=== PATIENT | male | born 1935 | race Two or more races ===

== ENCOUNTER → 2016-09-15 | Outpatient (CLI) | payer OTHER ==
--- NOTE | 2016-09-15 12:40 | CARD ---
APPROVED REPORT EXAM: Two-dimensional and M-mode echocardiogram with Doppler and color Doppler. Other Information Quality : GoodHR: 62bpm Rhythm : NSR INDICATION Aortic stenosis 2D DIMENSIONS RVDd2.7 (2.9-3.5cm)Left Atrium(2D)4.6 (1.6-4.0cm) IVSd1.2 (0.7-1.1cm)Aortic Root(2D)3.7 (2.0-3.7cm) LVDd4.8 (3.9-5.9cm)LVOT Diameter2.3 (1.8-2.4cm) PWd1.2 (0.7-1.1cm)LVDs2.8 (2.5-4.0cm) FS (%) 40.3 %SV75.0 ml LVEF(%)70.9 (>50%) Aortic Valve AoV Peak Jose Alejandro.378.2cm/sAoV VTI74.9cm AO Peak GR.57.2mmHgLVOT Peak Jose Alejandro.115.5cm/s AO Mean GR.25mmHgAVA (VMAX)1.32cm2 Mitral Valve MV E Fbfvzrkl983.1cm/sMV E Peak Gr.7mmHg MV DECEL [id number] A Httytqsb863.3cm/s MV E Mean Gr.2mmHgE/A Ratio0.8 MV A [id number] Pulmonary Valve PV Peak Nqgklrpl774.2cm/s Pulmonary Vein S1 Zpagkytd96.3cm/sD2 Mhfhrkzd88.6cm/s PVa [id number] LEFT VENTRICLE The left ventricle is normal size. There is mild concentric left ventricular hypertrophy. The left ve ntricular systolic function is normal and the ejection fraction is within normal range. The Ejection Fraction is 65-70%. There is normal LV segmental wall motion. Transmitral Doppler flow pattern is Gra de I-abnormal relaxation pattern. RIGHT VENTRICLE The right ventricle is normal size. There is normal right ventricular wall thickness. The right ventr icular systolic function is normal. ATRIA The left atrium size is normal. The right atrium size is normal. The interatrial septum is intact wit h no evidence for an atrial septal defect or patent foramen ovale as noted on 2-D or Doppler imaging. AORTIC VALVE The aortic valve is severely sclerotic. The aortic valve is trileaflet. Doppler and Color Flow reveal ed trace aortic regurgitation. There is moderate valvular aortic stenosis. Calculated aortic valve ar ea is 1.5 cm2 with maximum pressure gradient of 57 mmHg and mean pressure gradient of 23 mmHg. MITRAL VALVE Mitral annular calcification is mild. The mitral valve leaflets are thickened. There is no evidence o f mitral valve prolapse. There is no mitral valve stenosis. Doppler and Color Flow revealed no mitral valve regurgitation noted. TRICUSPID VALVE Doppler and Color Flow revealed no tricuspid valve regurgitation noted. Unable to determine pulmonary artery pressure at exam time. PULMONIC VALVE Doppler and Color Flow revealed trace pulmonic valvular regurgitation. There is no pulmonic valvular stenosis. GREAT VESSELS The aortic root is mildly enlarged at 3.7 cm The ascending aorta is normal in size. The IVC is normal in size and collapses >50% with inspiration. PERICARDIAL EFFUSION There is no evidence of significant pericardial effusion. Critical Notification Critical Value: No <Conclusion> The left ventricular systolic function is normal and the ejection fraction is within normal range. Th e Ejection Fraction is 65-70%. There is normal LV segmental wall motion. There is moderate valvular aortic stenosis. Calculated aortic valve area is 1.5 cm2 with maximum pre ssure gradient of 57 mmHg and mean pressure gradient of 23 mmHg. The aortic root is mildly enlarged at 3.7 cm
== END | disposition home or self-care (01) ==
LOC: ECHO 08:42
PROVIDERS: ATTEND Internal Medicine Cardiovascular Disease
DX: I35.2 Nonrheumatic aortic (valve) stenosis with insufficiency (principal)
CPT/HCPCS: 93306

== ENCOUNTER 2020-12-05 11:24 | Inpatient (IN) | payer MEDICARE, OTHER ==
[~2020-12-05] VITALS: Ht 167.6 cm; Wt 73.8 kg
[2020-12-05] MEDS ORDERED: IV NORMAL SALINE 1000ML BAG 1,000 ML IV SCH (12:00)
[2020-12-05 12:36] LABS: BASO % 0 % (0-3); EOS % 0 % (0-3); HEMATOCRIT 40.1 % (39.0-53.0); HEMOGLOBIN 13.6 g/dL (13.0-17.5); LYMPH # 0.5 x10^3/uL (1.0-4.8); LYMPH % 4 % (24-48); MEAN CORPUSCULAR HEMOGLOBIN 29 pg (25-35); MEAN CORPUSCULAR HGB CONC 34 g/dL (31-37); MEAN CORPUSCULAR VOLUME 85 fL (79-100); MONO # 1.1 x10^3/uL (0.0-1.1); MONO % 10 % (0-9); NEUT # 10.1 x10^3/uL (1.8-7.7); NEUT % 86 % (31-73); PLATELET COUNT 201 x10^3/uL (140-400); RED BLOOD COUNT 4.74 x10^6/uL (4.30-5.70); RED CELL DISTRIBUTION WIDTH 13.8 % (11.5-14.5); WHITE BLOOD COUNT 11.8 x10^3/uL (4.0-11.0)
[2020-12-05 12:48] LABS: CALCIUM 8.4 mg/dL (8.5-10.1); CREATININE 1.5 mg/dL (0.7-1.3); GFR 44.7; POTASSIUM 4.4 mmol/L (3.5-5.1)
[2020-12-05 12:53] LABS: ALBUMIN 2.8 g/dL (3.4-5.0); ALBUMIN/GLOBULIN RATIO 0.6 (1.0-1.7); TOTAL BILIRUBIN 0.7 mg/dL (0.2-1.0); TOTAL PROTEIN 7.3 g/dL (6.4-8.2)
--- NOTE | 2020-12-05 12:55 | RAD ---
XR CHEST 1V History: Reason: dry mouth, cough, pui / Spl. Instructions: / History: Comparison: None. Findings: Moderate multifocal pulmonary opacities bilaterally. No pleural effusion. No pneumothorax. Normal hea rt size. Prior granulomatous disease. Impression: 1. Moderate multifocal pulmonary opacities, may represent pulmonary edema or infection including vir al pneumonia. Electronically signed by: Orlando Damon DO (12/05/2020 12:53 PM) [id number]
[2020-12-05 12:56] LABS: % BANDS 3 % (0-9); % LYMPHS 3 % (24-48); % MONOS 10 % (0-10); % SEGS 84 % (35-66); PLT ESTIMATE ADEQUATE (ADEQUATE)
--- NOTE | 2020-12-05 15:05 | PHYS DOC ---
Past Medical History Past Surgical History: Other Additional Past Surgical Histo: HERNIA SX General Adult EDM: Chief Complaint: FLU SYMPTOM HPI: HPI: 85 yo M has medical history of hypertension presents to the ED with complaints of dry mouth, cough, sore throat, and body aches, stating that "nothing tastes good." PCP is Dr. Kaiser. Pt reports his who he lives with has covid and he has not been vaccinated (I cared for pts' yesterday in the ed and she was discharged home - her second visit in 1 week for covid-related complaints). Review of Systems: Review of Systems: Constitutional: Denies fever or chills. [] Eyes: Denies change in visual acuity. [] HENT: Denies nasal congestion or rhinorrhea Respiratory: Denies hemoptysis or shortness of breath. [] Cardiovascular: Denies chest pain or edema. [] GI: Denies nausea, vomiting, or diarrhea. [] : Denies dysuria or hematuria Musculoskeletal: Denies back pain or joint pain. [] Integument: Denies rash or diaphoresis Neurologic: Denies headache, focal weakness or sensory changes. [] Endocrine: Denies polyuria or polydipsia. [] Lymphatic: Denies swollen glands. [] Psychiatric: Denies depression or anxiety. [] Heart Score: C/O Chest Pain: No Risk Factors: Risk Factors: DM, Current or recent (<one month) smoker, HTN, HLP, family history of CAD, obesity. Risk Scores: Score 0 - 3: 2.5% MACE over next 6 weeks - Discharge Home Score 4 - 6: 20.3% MACE over next 6 weeks - Admit for Clinical Observation Score 7 - 10: 72.7% MACE over next 6 weeks - Early Invasive Strategies Current Medications: Current Medications Medications (Trade) Dose Ordered Sig/Harshal Start Time Stop Time Status Last Admin Dose Admin Sodium Chloride 1,000 ml @ 1,000 mls/hr Q1H 12/05/20 12:00 12/05/20 12:59 DC 12/05/20 12:20 1,000 MLS/HR Allergies: Allergies: Allergies Coded Allergies Type Severity Reaction Last Updated Verified No Known Drug Allergies 12/05/20 No Physical Exam: PE: Constitutional:no acute distress, non-toxic but slow appearing HENT: Normocephalic, atraumatic, very dry mucous membranes Eyes: EOMI, conjunctiva normal, no discharge. Neck: Normal range of motion, supple, no nuchal rigidity or meningismus Cardiovascular: S1/2 present, regular rhythm Lungs & Thorax: Speaking in full sentences, bilateral equal chest rise, no ta chypnea or increased work of breathing, saturating 90% on room air sometimes drops into the high 80s Abdomen: soft, no tenderness, Skin: Warm, dry, no erythema, no rash. [] Back: No tenderness, no CVA tenderness. [] Extremities: No tenderness, no cyanosis, Neurologic: Alert and oriented X 3, normal motor function, normal sensory function, no focal deficits noted. [] Psychologic: Affect normal, judgement normal, mood normal. [] Current Patient Data: Labs: Laboratory Tests Test 12/05/20 12:18 White Blood Count 11.8 x10^3/uL (4.0-11.0) H Red Blood Count 4.74 x10^6/uL (4.30-5.70) Hemoglobin 13.6 g/dL (13.0-17.5) Hematocrit 40.1 % (39.0-53.0) Mean Corpuscular Volume 85 fL (79-100) Mean Corpuscular Hemoglobin 29 pg (25-35) Mean Corpuscular Hemoglobin Concent 34 g/dL (31-37) Red Cell Distribution Width 13.8 % (11.5-14.5) Platelet Count 201 x10^3/uL (140-400) Neutrophils (%) (Auto) 86 % (31-73) H Lymphocytes (%) (Auto) 4 % (24-48) L Monocytes (%) (Auto) 10 % (0-9) H Eosinophils (%) (Auto) 0 % (0-3) Basophils (%) (Auto) 0 % (0-3) Neutrophils # (Auto) 10.1 x10^3/uL (1.8-7.7) H Lymphocytes # (Auto) 0.5 x10^3/uL (1.0-4.8) L Monocytes # (Auto) 1.1 x10^3/uL (0.0-1.1) Eosinophils # (Auto) 0.0 x10^3/uL (0.0-0.7) Basophils # (Auto) 0.0 x10^3/uL (0.0-0.2) Segmented Neutrophils % 84 % (35-66) H Band Neutrophils % 3 % (0-9) Lymphocytes % 3 % (24-48) L Monocytes % 10 % (0-10) Platelet Estimate Adequate (ADEQUATE) Sodium Level 142 mmol/L (136-145) Potassium Level 4.4 mmol/L (3.5-5.1) Chloride Level 104 mmol/L (98-107) Carbon Dioxide Level 25 mmol/L (21-32) Anion Gap 13 (6-14) Blood Urea Nitrogen 25 mg/dL (8-26) Creatinine 1.5 mg/dL (0.7-1.3) H Estimated GFR (Cockcroft-Gault) 44.7 BUN/Creatinine Ratio 17 (6-20) Glucose Level 148 mg/dL (70-99) H Calcium Level 8.4 mg/dL (8.5-10.1) L Total Bilirubin 0.7 mg/dL (0.2-1.0) Aspartate Amino Transferase (AST) 68 U/L (15-37) H Alanine Aminotransferase (ALT) 62 U/L (16-63) Alkaline Phosphatase 48 U/L (46-116) Troponin I Quantitative 0.046 ng/mL (0.000-0.055) ZM-Zoe-M-Type Natriuretic Peptide 2885 pg/mL (0-449) H Total Protein 7.3 g/dL (6.4-8.2) Albumin 2.8 g/dL (3.4-5.0) L Albumin/Globulin Ratio 0.6 (1.0-1.7) L Laboratory Tests 12/05/20 12:18 Laboratory Tests 12/05/20 12:18 Vital Signs: Vital Signs Date Time Temp Pulse Resp B/P (MAP) Pulse Ox O2 Delivery O2 Flow Rate FiO2 12/05/20 12:53 76 172/75 (107) 97 Nasal Cannula 2.0 12/05/20 11:30 100.3 16 100.3 EKG: EKG: Patient Niraj beats per minute, no axis deviation, normal intervals, no T wave inversions, no ST elevations or ST depressions Radiology/Procedures: Radiology/Procedures: IMAGING REPORT Signed PATIENT: ELMER BREWSTER ACCOUNT: [id number] : 1935 LOCATION: ER AGE: 85 SEX: M EXAM STATUS: PRE ER ORD. PHYSICIAN: NENITA CRUMP DO REASON: dry mouth, cough, pui PROCEDURE: PORTABLE CHEST 1V XR CHEST 1V History: Reason: dry mouth, cough, pui / Spl. Instructions: / History: Comparison: None. Findings: Moderate multifocal pulmonary opacities bilaterally. No pleural effusion. No pneumothorax. Normal heart size. Prior granulomatous disease. Impression: 1. Moderate multifocal pulmonary opacities, may represent pulmonary edema or infection including viral pneumonia. Electronically signed by: Orlando Damon DO (12/05/2020 12:53 PM) [id number] DICTATED and SIGNED BY: ORLANDO DAMON DO DATE: 12/05/20 [id number] 0 Course & Med Decision Making: Course & Med Decision Making Pertinent Labs and Imaging studies reviewed. (See chart for details) COVID-19 CRITERIA: The patient was evaluated during the global COVID-19 pandemic, and that diagnosis was suspected/considered upon their initial presentation. Their evaluation, treatment and testing was consistent with current guidelines for patients who present with complaints or symptoms that may be related to COVID-19. Concern for PUI with Covid exposure. Is requiring NC in ed. chest x-ray concerning for viral pneumonia. Troponin is on the upper limit of normal. Will admit for further medical management. Patient stable time of admission agrees to this plan. I have spoken with the patient and/or caregivers. I have explained the patient's condition, diagnosis and treatment plan based on the information available to me at this time. I have answered the patient's and/or caregivers questions and answered any concerns. The patient and/or caregivers have as good an understanding of the patient's diagnosis, condition and treatment plan as can be expected at this point. The patient has been stabilized within the capability of the emergency department. The patient will be transported for further care and management or will be moved to an observation or inpatient service. I have communicated with the staff or medical practitioner taking over this patient's care. Dragon Disclaimer: Dragon Disclaimer: This electronic medical record was generated, in whole or in part, using a voice recognition dictation system. Departure Departure Impression: Primary Impression: Person under investigation for COVID-19 Additional Impressions: Hypoxemia requiring supplemental oxygen Renal insufficiency Disposition: ADMITTED INPATIENT Admitting Physician: EMILIE (Dr. Cramer) Condition: STABLE Referrals: MON[facility] NOEL [facility] (PCP) [facility] Dec 05, 2020 15:04
--- NOTE | 2020-12-05 15:11 | PDOC1 ---
History and Physical Date of Admission Date of Admission DATE: 12/05/20 TIME: 15:10 Identification/Chief Complaint Chief Complaint Rhinorrhea, COVID exposure Source Source: Caregiver, Chart review, Patient History of Present Illness History of Present Illness Mr Oliver is an 85yo male with PMHx HTN who presents to ED via EMS due to progressive rhinorrhea and some shortness of breath as well as loss of sense of taste. Patient speaks primarily Faroese with some Estonian and his son was initially bedside and noted his stepmother tested positive for Covid 1 week ago and the patient is not vaccinated against Covid. He notes he has been feeling weak in his been unable to get to the restroom a few times and had accidents where he urinated on himself. No diarrhea or abdominal pain. Temperature 100.3 F in ED. O2 saturations 87% improved to 92% with 2 L nasal cannula oxygen. Labs with WBC 11.8, Hb 13.6, platelets 201, NA 142, K4.4, BUN 25, CR 1.5, glucose 148, calcium 8.4, bilirubin 0.7, AST 68, ALT 62, alkaline phosphatase 48, albumin 2.8, NT proBNP 2885, initial troponin 0.046 EKG normal sinus rhythm rate of 87 bpm, leftward axis otherwise normal intervals no T wave inversions or ST segment elevations. Chest radiograph with multifocal pulmonary opacities bilaterally Admitted for further care of hypoxia Past Medical History Cardiovascular: HTN, Aortic stenosis Past Surgical History Past Surgical History: Hernia Repair Family History Family History: Hypertension Social History Smoke: No ALCOHOL: none Drugs: None Current Problem List Problem List Problems Medical Problems: (1) Hypoxemia requiring supplemental oxygen Status: Acute (2) Person under investigation for COVID-19 Status: Acute (3) Renal insufficiency Status: Acute Current Medications Current Medications Current Medications Sodium Chloride 1,000 ml @ 1,000 mls/hr Q1H IV Last administered on 12/05/20at 12:20; Start 12/05/20 at 12:00; Stop 12/05/20 at 12:59; Status DC Allergies Allergies: Coded Allergies: No Known Drug Allergies (Unverified , 12/05/20) ROS General: YES: Chills, Fatigue, Malaise, Appetite; No: Night Sweats, Other PSYCHOLOGICAL ROS: YES: Disorientation, Memory difficulties; No: Anxiety, Behavioral Disorder, Concentration difficultie, Decreased libido, Depression, Hallucinations, Hostility, Irritablity, Mood Swings, Obsessive thoughts, Physical abuse, Sexual abuse, Sleep disturbances, Suicidal ideation, Other Eyes: No Blurry vision, No Decreased vision, No Double vision, No Dry eyes, No Excessive tearing, No Eye Pain, No Itchy Eyes, No Loss of vision, No Photophobia, No Scotomata, No Uses contacts, No Uses glasses, No Other HEENT: YES: Nasal congestion, Nasal discharge, Sore Throat; No: Heacaches, Visual Changes, Hearing change, Oral lesions, Sinus pain, Epistaxis, Sneezing, Snoring, Tinnitus, Vertigo, Vocal changes, Other ALLERGY AND IMMUNOLOGY: No: Hives, Insect Bite Sensitivity, Itchy/Watery Eyes, Nasal Congestion, Post Nasal Drip, Seasonal Allergies, Other Hematological and Lymphatic: No: Bleeding Problems, Blood Clots, Blood Transfusions, Brusing, Night Sweats, Pallor, Swollen Lymph Nodes, Other ENDOCRINE: No: Breast Changes, Galactorrhea, Hair Pattern Changes, Hot Flashes, Malaise/lethargy, Mood Swings, Palpitations, Polydipsia/polyuria, Skin Changes, Temperature Intolerance, Unexpected Weight Changes, Other Breast: No New/Changing Breast Lumps, No Nipple changes, No Nipple discharge, No Other Respiratory: YES: Cough, Shortness of breath, SOB with excertion, Sputum Changes, Tachypnea; No: Hemoptysis, Orthopnea, Pleuritic Pain, Stridor, Wheezing, Other Cardiovascular: No Chest Pain, No Palpitations, No Orthopnea, No Paroxysmal Noc. Dyspnea, No Edema, No Lt Headedness, No Other Gastrointestinal: No Nausea, No Vomiting, No Abdominal Pain, No Diarrhea, No Constipation, No Melena, No Hematochezia, No Other Genitourinary: No Dysuria, No Frequency, No Incontinence, No Hematuria, No Retention, No Discharge, No Urgency, No Pain, No Flank Pain, No Other, No , No , No , No , No , No , No Musculoskeletal: No Gait Disturbance, No Joint Pain, No Joint Stiffness, No Joint Swelling, No Muscle Pain, No Muscular Weakness, No Pain In:, No Swelling In:, No Other Neurological: No Behavorial Changes, No Bowel/Bladder ControlChng, No Confus ion, No Dizziness, No Gait Disturbance, No Headaches, No Impaired Coord/balance, No Memory Loss, No Numbness/Tingling, No Seizures, No Speech Problems, No Tremors, No Visual Changes, No Weakness, No Other Skin: No Dry Skin, No Eczema, No Hair Changes, No Lumps, No Mole Changes, No Mottling, No Nail Changes, No Pruritus, No Rash, No Skin Lesion Changes, No Othe r, No Acne Physical Exam General: Alert, Cooperative, mild distress HEENT: Atraumatic, PERRLA, EOMI, Mucous membr. moist/pink Lungs: Other (bilateral basilar crackles) Heart: S1S2, RRR, no thrills, no rubs, no gallops, no murmurs, murmurs (2/6 NICOLE) Abdomen: Normal bowel sounds, Soft, No tenderness, No hepatosplenomegaly, No masses Rectal Exam: not examined Extremities: No clubbing, No cyanosis, No edema, Normal pulses, No tenderness/swelling Skin: No rashes, No breakdown, No significant lesion Neuro: Normal speech, Strength at 5/5 X4 ext, Normal tone, Sensation intact, Cranial nerves 3-12 NL, Reflexes 2+ Psych/Mental Status: Other (A bit confused) Vitals Vitals Vital Signs Date Time Temp Pulse Resp B/P (MAP) Pulse Ox O2 Delivery O2 Flow Rate FiO2 12/05/20 12:53 76 172/75 (107) 97 Nasal Cannula 2.0 12/05/20 11:30 100.3 16 100.3 Labs Labs Laboratory Tests Test 12/05/20 12:18 White Blood Count 11.8 x10^3/uL (4.0-11.0) Red Blood Count 4.74 x10^6/uL (4.30-5.70) Hemoglobin 13.6 g/dL (13.0-17.5) Hematocrit 40.1 % (39.0-53.0) Mean Corpuscular Volume 85 fL (79-100) Mean Corpuscular Hemoglobin 29 pg (25-35) Mean Corpuscular Hemoglobin Concent 34 g/dL (31-37) Red Cell Distribution Width 13.8 % (11.5-14.5) Platelet Count 201 x10^3/uL (140-400) Neutrophils (%) (Auto) 86 % (31-73) Lymphocytes (%) (Auto) 4 % (24-48) Monocytes (%) (Auto) 10 % (0-9) Eosinophils (%) (Auto) 0 % (0-3) Basophils (%) (Auto) 0 % (0-3) Neutrophils # (Auto) 10.1 x10^3/uL (1.8-7.7) Lymphocytes # (Auto) 0.5 x10^3/uL (1.0-4.8) Monocytes # (Auto) 1.1 x10^3/uL (0.0-1.1) Eosinophils # (Auto) 0.0 x10^3/uL (0.0-0.7) Basophils # (Auto) 0.0 x10^3/uL (0.0-0.2) Segmented Neutrophils % 84 % (35-66) Band Neutrophils % 3 % (0-9) Lymphocytes % 3 % (24-48) Monocytes % 10 % (0-10) Platelet Estimate Adequate (ADEQUATE) Sodium Level 142 mmol/L (136-145) Potassium Level 4.4 mmol/L (3.5-5.1) Chloride Level 104 mmol/L (98-107) Carbon Dioxide Level 25 mmol/L (21-32) Anion Gap 13 (6-14) Blood Urea Nitrogen 25 mg/dL (8-26) Creatinine 1.5 mg/dL (0.7-1.3) Estimated GFR (Cockcroft-Gault) 44.7 BUN/Creatinine Ratio 17 (6-20) Glucose Level 148 mg/dL (70-99) Calcium Level 8.4 mg/dL (8.5-10.1) Total Bilirubin 0.7 mg/dL (0.2-1.0) Aspartate Amino Transf (AST/SGOT) 68 U/L (15-37) Alanine Aminotransferase (ALT/SGPT) 62 U/L (16-63) Alkaline Phosphatase 48 U/L (46-116) Troponin I Quantitative 0.046 ng/mL (0.000-0.055) ZK-Xce-J-Type Natriuretic Peptide 2885 pg/mL (0-449) Total Protein 7.3 g/dL (6.4-8.2) Albumin 2.8 g/dL (3.4-5.0) Albumin/Globulin Ratio 0.6 (1.0-1.7) Laboratory Tests Test 8/22/21 12:18 White Blood Count 11.8 x10^3/uL (4.0-11.0) Red Blood Count 4.74 x10^6/uL (4.30-5.70) Hemoglobin 13.6 g/dL (13.0-17.5) Hematocrit 40.1 % (39.0-53.0) Mean Corpuscular Volume 85 fL (79-100) Mean Corpuscular Hemoglobin 29 pg (25-35) Mean Corpuscular Hemoglobin Concent 34 g/dL (31-37) Red Cell Distribution Width 13.8 % (11.5-14.5) Platelet Count 201 x10^3/uL (140-400) Neutrophils (%) (Auto) 86 % (31-73) Lymphocytes (%) (Auto) 4 % (24-48) Monocytes (%) (Auto) 10 % (0-9) Eosinophils (%) (Auto) 0 % (0-3) Basophils (%) (Auto) 0 % (0-3) Neutrophils # (Auto) 10.1 x10^3/uL (1.8-7.7) Lymphocytes # (Auto) 0.5 x10^3/uL (1.0-4.8) Monocytes # (Auto) 1.1 x10^3/uL (0.0-1.1) Eosinophils # (Auto) 0.0 x10^3/uL (0.0-0.7) Basophils # (Auto) 0.0 x10^3/uL (0.0-0.2) Segmented Neutrophils % 84 % (35-66) Band Neutrophils % 3 % (0-9) Lymphocytes % 3 % (24-48) Monocytes % 10 % (0-10) Platelet Estimate Adequate (ADEQUATE) Sodium Level 142 mmol/L (136-145) Potassium Level 4.4 mmol/L (3.5-5.1) Chloride Level 104 mmol/L (98-107) Carbon Dioxide Level 25 mmol/L (21-32) Anion Gap 13 (6-14) Blood Urea Nitrogen 25 mg/dL (8-26) Creatinine 1.5 mg/dL (0.7-1.3) Estimated GFR (Cockcroft-Gault) 44.7 BUN/Creatinine Ratio 17 (6-20) Glucose Level 148 mg/dL (70-99) Calcium Level 8.4 mg/dL (8.5-10.1) Total Bilirubin 0.7 mg/dL (0.2-1.0) Aspartate Amino Transf (AST/SGOT) 68 U/L (15-37) Alanine Aminotransferase (ALT/SGPT) 62 U/L (16-63) Alkaline Phosphatase 48 U/L (46-116) Troponin I Quantitative 0.046 ng/mL (0.000-0.055) JL-Ppw-C-Type Natriuretic Peptide 2885 pg/mL (0-449) Total Protein 7.3 g/dL (6.4-8.2) Albumin 2.8 g/dL (3.4-5.0) Albumin/Globulin Ratio 0.6 (1.0-1.7) Images Images Chest radiograph: Moderate multifocal pulmonary opacities bilaterally. No pleural effusion. No pneumothorax. Normal heart size. Prior granulomatous disease. Impression: 1. Moderate multifocal pulmonary opacities, may represent pulmonary edema or infection including viral pneumonia. VTE Prophylaxis Ordered VTE Prophylaxis Devices: No VTE Pharmacological Prophylaxi: Yes Assessment/Plan Assessment/Plan A/P: Acute respiratory failure with hypoxia - pneumonia vs pulmonary edema from mild acute chf Abnormal chest radiograph - symptomatically pneumonia with fever, cough, hypoxia Sepsis - with fever, leukocytosis, given empiric antibiotics.will give IVF for LIVIA, sepsis, limit to 30mg/kg total Elevated troponin - likely demand ischemia from hypoxia, will monitor LIVIA - no renal disease history, likely vasomotor nephropathy. Will check PVR for possible retention as well Transaminitis - possibly hypoxia mediated vs possible COVID 19 Moderate aortic stenosis - on recent echocardiogram. Will try not to lower BP excessively, will give IVF for LIVIA, sepsis, limit to 30mg/kg total Cough - will order cough suppressant, likely viral pneumonia from COVID 19, will treat supportively and cover for secondary bacterial pneumonia as well. Confusion/Acute encephalopathy - likely metabolic from hypoxia, sepsis, will monitor mental status, light during the day, prn zyprexa for agitation or anxiety FEN - Regular diet PPX - heparin FULL CODE Dispo - inpatient for hypoxia Justifications for Admission Other Justification WILLIAM PORTER MD Dec 05, 2020 15:11
[2020-12-05 19:00] VITALS: BP 148/58
[2020-12-05] MEDS ORDERED: AMLO-186 PO (19:40)
[2020-12-05] MEDS ORDERED: hydrALAZINE 20 MG/ML VIAL. IVP PRN (19:45)
[2020-12-05] MEDS ORDERED: guaiFENesin DM 200MG/20MG 10 ML SYRUP PO PRN (19:45)
[2020-12-05] MEDS ORDERED: ONDANSETRON PF 4 MG/2 ML VIAL. IVP PRN (19:45)
[2020-12-05] MEDS ORDERED: traMADol 50 MG TABLET PO PRN (19:45)
[2020-12-05] MEDS: PSYLLIUM HUSK (SUGAR FREE) 1 PKT PACKET PO SCH (20:52)
[2020-12-05] MEDS: ACETAMINOPHEN 325 MG TABLET. PO PRN (20:53)
--- NOTE | 2020-12-05 21:53 | EKG ---
[facility] [address] [place] [address] Test Date: 2020-12-05 Test Time: 11:41:34 Pat Name: ELMER BREWSTER Department: Room: Gender: Marketing Coordinator: : 1935 Requested By: NENITA CRUMP Order Number: [id number] Reading MD: Measurements Intervals [place] Rate: 87 P: 44 IN: 154 QRS: -10 QRSD: 84 T: 65 QT: 336 QTc: 405 Interpretive Statements SINUS RHYTHM LEFTWARD AXIS NON SPECIFIC ST-T ABNORMALITY (ELEVATION) OTHERWISE NORMAL ECG RI6.02 No previous ECG available for comparison
[2020-12-05 23:21] VITALS: BP 123/60
[2020-12-05] MEDS ORDERED: DOXYCYCLINE HYCLATE 100 MG in IV DEXTROSE 5% 100ML 100 ML IV ONE (23:30)
[2020-12-06] MEDS: HEPARIN for SUB-Q USE 5,000 UNIT/ML VIAL. SQ SCH ×4 (00:56→21:02)
[2020-12-06] MEDS: cefTRIAXone IV Push 1 GM VIAL. IVP SCH ×2 (00:57→23:20)
[2020-12-06] MEDS: IV NORMAL SALINE 1000ML BAG 1,000 ML IV SCH ×4 (00:57→18:28)
[2020-12-06 03:25] VITALS: BP 147/67
[2020-12-06 05:15] LABS: BILIRUBIN,URINE NEGATIVE (NEG); CLARITY,URINE CLEAR; COLOR,URINE YELLOW; NITRITE,URINE NEGATIVE (NEG); PH,URINE 5.5 (<5.0-8.0); PROTEIN,URINE 100 mg/dL (NEG-TRACE)
[2020-12-06 05:25] LABS: RBC,URINE OCC /HPF (0-2); WBC,URINE OCC /HPF (0-4)
[2020-12-06 05:26] LABS: AMORPHOUS SEDIMENT,UR PRESENT /HPF; BACTERIA,URINE 0 /HPF (0-FEW)
[2020-12-06 07:00] VITALS: BP 140/64
[2020-12-06 08:51] LABS: BASO % 0 % (0-3); EOS % 0 % (0-3); HEMATOCRIT 41.3 % (39.0-53.0); LYMPH # 0.5 x10^3/uL (1.0-4.8); LYMPH % 3 % (24-48); MEAN CORPUSCULAR HEMOGLOBIN 29 pg (25-35); MEAN CORPUSCULAR HGB CONC 34 g/dL (31-37); MEAN CORPUSCULAR VOLUME 85 fL (79-100); MONO # 0.8 x10^3/uL (0.0-1.1); MONO % 5 % (0-9); NEUT % 91 % (31-73); PLATELET COUNT 238 x10^3/uL (140-400); RED BLOOD COUNT 4.86 x10^6/uL (4.30-5.70); RED CELL DISTRIBUTION WIDTH 13.9 % (11.5-14.5); WHITE BLOOD COUNT 15.3 x10^3/uL (4.0-11.0)
[2020-12-06 09:41] LABS: ALBUMIN 2.6 g/dL (3.4-5.0); ALBUMIN/GLOBULIN RATIO 0.6 (1.0-1.7); CALCIUM 8.2 mg/dL (8.5-10.1); CREATININE 1.3 mg/dL (0.7-1.3); GFR 52.7; POTASSIUM 3.9 mmol/L (3.5-5.1); TOTAL BILIRUBIN 0.6 mg/dL (0.2-1.0)
[2020-12-06] MEDS: ZINC SULFATE 220 MG CAPSULE. PO SCH (09:50)
[2020-12-06] MEDS: ASCORBIC ACID 500 MG TABLET PO SCH (09:50)
[2020-12-06] MEDS: THIAMINE 100 MG TABLET. PO SCH (09:50)
[2020-12-06] MEDS: DOXYCYCLINE HYCLATE 100 MG in IV DEXTROSE 5% 100ML 100 ML IV SCH ×2 (09:51→21:03)
[2020-12-06 11:08] VITALS: BP 110/65
--- NOTE | 2020-12-06 12:34 | NUR ---
IV fluids nonadministered by this RN. Previous bag still infusing. Refer to EMAR for further details. Addendum: 12/06/20 at 1829 by JAMIE REVELES RN Nonadministration undone by this RN. 2,000 mL of NS ordered in total. 2nd bag administered by this RN at this time.
[2020-12-06 15:00] VITALS: BP 139/68
--- NOTE | 2020-12-06 15:04 | NUR ---
SW following. Discussed with RN, pt from home with , 12L, cardiac diet. COVID-19 positive. RN advised no SW needs at this time. SW will continue to follow.
--- NOTE | 2020-12-06 16:54 | PDOC ---
[facility] PROGRESS NOTE Date of Service DOS: DATE: 12/06/20 TIME: 16:45 Chief Complaint Chief Complaint SOB History of Present Illness History of Present Illness Mr Oliver is an 85yo male with PMHx HTN who presents to ED via EMS due to progressive rhinorrhea and some shortness of breath as well as loss of sense of taste. Patient speaks primarily Bulgarian with some Wolof and his son was initially bedside and noted his stepmother tested positive for Covid 1 week ago and the patient is not vaccinated against Covid. He notes he has been feeling weak in his been unable to get to the restroom a few times and had accidents where he urinated on himself. No diarrhea or abdominal pain. Temperature 100.3 F in ED. O2 saturations 87% improved to 92% with 2 L nasal cannula oxygen. Labs with WBC 11.8, Hb 13.6, platelets 201, NA 142, K4.4, BUN 25, CR 1.5, glucose 148, calcium 8.4, bilirubin 0.7, AST 68, ALT 62, alkaline phosphatase 48, albumin 2.8, NT proBNP 2885, initial troponin 0.046 EKG normal sinus rhythm rate of 87 bpm, leftward axis otherwise normal intervals no T wave inversions or ST segment elevations. Chest radiograph with multifocal pulmonary opacities bilaterally Admitted for further care of hypoxia 12/06/20 Patient seen and examined at bedside. He did not appear in any distress. Notable language barrier. Continue COVID treatment. Vitals/I&O Vitals/I&O: Vital Signs Date Time Temp Pulse Resp B/P (MAP) Pulse Ox O2 Delivery O2 Flow Rate FiO2 12/06/20 15:00 100.7 72 20 139/68 (91) 94 Nasal Cannula 12.0 100.7 I & O 12/05/20 12/05/20 12/06/20 15:00 23:00 07:00 Output Total 400 ml Balance -400 ml Physical Exam General: Alert, Cooperative, mild distress Heart: Regular rate, Normal S1, Normal S2 Lungs: Other (coarse) Abdomen: Normal bowel sounds, Soft, No tenderness, No masses Extremities: No clubbing, No cyanosis, No edema, Normal pulses, No tenderness/swelling Skin: No rashes, No breakdown, No significant lesion Labs Labs: Laboratory Tests Test 12/05/20 20:30 12/06/20 04:15 12/06/20 05:00 12/06/20 08:15 C-Reactive Protein, Quantitative 76.2 mg/L (0-3.3) Troponin I Quantitative 0.055 ng/mL (0.000-0.055) 0.089 ng/mL (0.000-0.055) Urine Collection Type Unknown Urine Color Yellow Urine Clarity Clear Urine pH 5.5 (<5.0-8.0) Urine Specific Bowden 1.025 (1.000-1.030) Urine Protein 100 mg/dL (NEG-TRACE) Urine Glucose (UA) Negative mg/dL (NEG) Urine Ketones (Stick) Negative mg/dL (NEG) Urine Blood Moderate (NEG) Urine Nitrite Negative (NEG) Urine Bilirubin Negative (NEG) Urine Urobilinogen Dipstick 1.0 mg/dL (0.2 mg/dL) Urine Leukocyte Esterase Negative (NEG) Urine RBC Occ /HPF (0-2) Urine WBC Occ /HPF (0-4) Urine Squamous Epithelial Cells Occ /LPF Urine Amorphous Sediment Present /HPF Urine Bacteria 0 /HPF (0-FEW) Urine Mucus Mod /LPF White Blood Count 15.3 x10^3/uL (4.0-11.0) Red Blood Count 4.86 x10^6/uL (4.30-5.70) Hemoglobin 14.0 g/dL (13.0-17.5) Hematocrit 41.3 % (39.0-53.0) Mean Corpuscular Volume 85 fL (79-100) Mean Corpuscular Hemoglobin 29 pg (25-35) Mean Corpuscular Hemoglobin Concent 34 g/dL (31-37) Red Cell Distribution Width 13.9 % (11.5-14.5) Platelet Count 238 x10^3/uL (140-400) Neutrophils (%) (Auto) 91 % (31-73) Lymphocytes (%) (Auto) 3 % (24-48) Monocytes (%) (Auto) 5 % (0-9) Eosinophils (%) (Auto) 0 % (0-3) Basophils (%) (Auto) 0 % (0-3) Neutrophils # (Auto) 14.0 x10^3/uL (1.8-7.7) Lymphocytes # (Auto) 0.5 x10^3/uL (1.0-4.8) Monocytes # (Auto) 0.8 x10^3/uL (0.0-1.1) Eosinophils # (Auto) 0.0 x10^3/uL (0.0-0.7) Basophils # (Auto) 0.0 x10^3/uL (0.0-0.2) Sodium Level 143 mmol/L (136-145) Potassium Level 3.9 mmol/L (3.5-5.1) Chloride Level 106 mmol/L (98-107) Carbon Dioxide Level 22 mmol/L (21-32) Anion Gap 15 (6-14) Blood Urea Nitrogen 23 mg/dL (8-26) Creatinine 1.3 mg/dL (0.7-1.3) Estimated GFR (Cockcroft-Gault) 52.7 BUN/Creatinine Ratio 18 (6-20) Glucose Level 124 mg/dL (70-99) Calcium Level 8.2 mg/dL (8.5-10.1) Total Bilirubin 0.6 mg/dL (0.2-1.0) Aspartate Amino Transf (AST/SGOT) 66 U/L (15-37) Alanine Aminotransferase (ALT/SGPT) 54 U/L (16-63) Alkaline Phosphatase 47 U/L (46-116) Total Protein 7.0 g/dL (6.4-8.2) Albumin 2.6 g/dL (3.4-5.0) Albumin/Globulin Ratio 0.6 (1.0-1.7) Assessment and Plan Assessmemt and Plan Problems Medical Problems: (1) Hypoxemia requiring supplemental oxygen Status: Acute (2) Person under investigation for COVID-19 Status: Acute (3) Renal insufficiency Status: Acute Assessment/Plan A/P: Acute respiratory failure with hypoxia - pneumonia vs pulmonary edema from mild acute chf Abnormal chest radiograph - symptomatically pneumonia with fever, cough, hypoxia Sepsis - with fever, leukocytosis, given empiric antibiotics.will give IVF for LIVIA, sepsis, limit to 30mg/kg total Elevated troponin - likely demand ischemia from hypoxia, will monitor LIVIA - no renal disease history, likely vasomotor nephropathy. Will check PVR for possible retention as well Transaminitis - possibly hypoxia mediated vs possible COVID 19 Moderate aortic stenosis - on recent echocardiogram. Will try not to lower BP excessively, will give IVF for LIVIA, sepsis, limit to 30mg/kg total Cough - will order cough suppressant, likely viral pneumonia from COVID 19, will treat supportively and cover for secondary bacterial pneumonia as well. Confusion/Acute encephalopathy - likely metabolic from hypoxia, sepsis, will monitor mental status, light during the day, prn zyprexa for agitation or anxiety FEN - Regular diet PPX - heparin FULL CODE Dispo - inpatient for hypoxia Comment Review of Relevant I have reviewed the following items khushbu (where applicable) has been applied. Medications: Current Medications Medications (Trade) Dose Ordered Sig/Harshal Route PRN Reason Start Time Stop Time Status Last Admin Dose Admin Acetaminophen (Tylenol) 650 mg PRN Q6HRS PRN PO MILD PAIN / TEMP > 100.3'F 12/05/20 19:45 12/05/20 20:53 Olanzapine (ZyPREXA ZYDIS) 5 mg PRN BID PRN PO ANXIETY / AGITATION 12/05/20 19:45 12/05/20 21:31 Psyllium Hydrophilic Mucilloid (Metamucil Fiber Packet) 1 pkt QHS PO 12/05/20 21:00 12/05/20 20:52 Heparin Sodium (Porcine) (Heparin Sodium) 5,000 unit Q8HRS SQ 12/05/20 22:00 12/06/20 13:35 Amlodipine Besylate (Norvasc) 5 mg DAILY PO 12/05/20 20:00 12/06/20 09:50 Ceftriaxone Sodium (Rocephin) 1 gm Q24H IVP 12/05/20 23:15 12/12/20 23:14 12/06/20 00:57 Doxycycline Hyclate 100 mg/ Dextrose 100 ml @ 50 mls/hr Q12HR IV 12/06/20 09:00 12/12/20 08:59 12/06/20 09:51 Doxycycline Hyclate 100 mg/ Dextrose 100 ml @ 50 mls/hr 1X ONCE IV 12/05/20 23:30 12/06/20 01:29 DC 12/06/20 00:58 Zinc Sulfate (Orazinc) 220 mg DAILY PO 12/06/20 09:00 12/06/20 09:50 Thiamine Mononitrate (Vitamin B-1) 100 mg DAILY PO 12/06/20 09:00 12/06/20 09:50 Ascorbic Acid (Vitamin C) 500 mg DAILY PO 12/06/20 09:00 12/06/20 09:50 Sodium Chloride 1,000 ml @ 75 mls/hr [id number] IV 12/05/20 23:15 12/07/20 01:54 12/06/20 00:57 Justifications for Admission Other Justification WILLIAM HALE MD Dec 06, 2020 16:54
[2020-12-06 19:00] VITALS: BP 114/63
[2020-12-06] MEDS: PSYLLIUM HUSK (SUGAR FREE) 1 PKT PACKET PO SCH ×2 (21:00→21:03)
[2020-12-06] MEDS: ACETAMINOPHEN 325 MG TABLET. PO PRN (21:11)
[2020-12-06 23:00] VITALS: BP 128/56
[2020-12-07 03:00] VITALS: BP 137/63
[2020-12-07] MEDS: HEPARIN for SUB-Q USE 5,000 UNIT/ML VIAL. SQ SCH ×3 (05:48→22:38)
[2020-12-07 07:00] VITALS: BP 141/57
[2020-12-07] MEDS ORDERED: guaiFENesin/CODEINE 100mg/10mg 5 ML LIQUID PO PRN (09:15)
[2020-12-07] MEDS: ZINC SULFATE 220 MG CAPSULE. PO SCH (09:49)
[2020-12-07] MEDS: THIAMINE 100 MG TABLET. PO SCH (09:49)
[2020-12-07] MEDS: ASCORBIC ACID 500 MG TABLET PO SCH (09:49)
[2020-12-07] MEDS: DOXYCYCLINE HYCLATE 100 MG in IV DEXTROSE 5% 100ML 100 ML IV SCH ×2 (09:50→22:41)
[2020-12-07] MEDS ORDERED: REMDESIVIR LOAD in IV NORMAL SALINE 250ML TV IV ONE (11:00)
[2020-12-07 11:16] VITALS: BP 145/61
--- NOTE | 2020-12-07 12:40 | PDOC ---
[facility] PROGRESS NOTE Date of Service DOS: DATE: 12/07/20 TIME: 12:37 Chief Complaint Chief Complaint SOB History of Present Illness History of Present Illness Mr Oliver is an 85yo male with PMHx HTN who presents to ED via EMS due to progressive rhinorrhea and some shortness of breath as well as loss of sense of taste. Patient speaks primarily Fijian with some Khmer and his son was initially bedside and noted his stepmother tested positive for Covid 1 week ago and the patient is not vaccinated against Covid. He notes he has been feeling weak in his been unable to get to the restroom a few times and had accidents where he urinated on himself. No diarrhea or abdominal pain. Temperature 100.3 F in ED. O2 saturations 87% improved to 92% with 2 L nasal cannula oxygen. Labs with WBC 11.8, Hb 13.6, platelets 201, NA 142, K4.4, BUN 25, CR 1.5, glucose 148, calcium 8.4, bilirubin 0.7, AST 68, ALT 62, alkaline phosphatase 48, albumin 2.8, NT proBNP 2885, initial troponin 0.046 EKG normal sinus rhythm rate of 87 bpm, leftward axis otherwise normal intervals no T wave inversions or ST segment elevations. Chest radiograph with multifocal pulmonary opacities bilaterally Admitted for further care of hypoxia 12/06/20 Patient seen and examined at bedside. He did not appear in any distress. Notable language barrier. Continue COVID treatment. 12/07/20 Patient seen and examined at bedside. Febrile yesterday. Continue all current Covid treatment. Wean oxygen as tolerated, currently on 10 L nasal cannula. No changes otherwise, plan of care discussed with bedside RN. Vitals/I&O Vitals/I&O: Vital Signs Date Time Temp Pulse Resp B/P (MAP) Pulse Ox O2 Delivery O2 Flow Rate FiO2 12/07/20 11:16 100.3 72 20 145/61 (89) 91 Nasal Cannula 10.0 100.3 I & O 12/06/20 12/06/20 12/07/20 15:00 23:00 07:00 Intake Total 440 ml 1200 ml 100 ml Balance 440 ml 1200 ml 100 ml Physical Exam General: Alert, Cooperative, mild distress Heart: Regular rate, Normal S1, Normal S2 Lungs: Other (coarse) Abdomen: Normal bowel sounds, Soft, No tenderness, No masses Extremities: No clubbing, No cyanosis, No edema, Normal pulses, No tenderness/swelling Skin: No rashes, No breakdown, No significant lesion Assessment and Plan Assessmemt and Plan Problems Medical Problems: (1) Hypoxemia requiring supplemental oxygen Status: Acute (2) Person under investigation for COVID-19 Status: Acute (3) Renal insufficiency Status: Acute A/P: Acute respiratory failure with hypoxia - pneumonia vs pulmonary edema from mild acute chf Abnormal chest radiograph - symptomatically pneumonia with fever, cough, hypoxia Sepsis - with fever, leukocytosis, given empiric antibiotics.will give IVF for LIVIA, sepsis, limit to 30mg/kg total Elevated troponin - likely demand ischemia from hypoxia, will monitor LIVIA - no renal disease history, likely vasomotor nephropathy.l Transaminitis - possibly hypoxia mediated vs possible COVID 19 Moderate aortic stenosis - on recent echocardiogram. Will try not to lower BP excessively, will give IVF for LIVIA, sepsis, limit to 30mg/kg total Cough - will order cough suppressant, likely viral pneumonia from COVID 19, will treat supportively and cover for secondary bacterial pneumonia as well. Confusion/Acute encephalopathy - likely metabolic from hypoxia, sepsis, will monitor mental status, light during the day, prn zyprexa for agitation or anxiety FEN - Regular diet PPX - heparin FULL CODE Dispo - inpatient for hypoxia Comment Review of Relevant I have reviewed the following items khushbu (where applicable) has been applied. Medications: Current Medications Medications (Trade) Dose Ordered Sig/Harshal Route PRN Reason Start Time Stop Time Status Last Admin Dose Admin Remdesivir 200 mg/ Sodium Chloride 210 ml @ 210 mls/hr 1X ONCE IV 12/07/20 11:00 12/07/20 11:59 DC 12/07/20 11:55 Justifications for Admission Other Justification WILLIAM HALE MD Dec 07, 2020 12:40
[2020-12-07 15:00] VITALS: BP 124/53
[2020-12-07 19:00] VITALS: BP 107/67
[2020-12-07] MEDS: cefTRIAXone IV Push 1 GM VIAL. IVP SCH (21:34)
[2020-12-07] MEDS: PSYLLIUM HUSK (SUGAR FREE) 1 PKT PACKET PO SCH (22:40)
[2020-12-07 23:00] VITALS: BP 145/67
[2020-12-08 03:00] VITALS: BP 130/71
[2020-12-08] MEDS: HEPARIN for SUB-Q USE 5,000 UNIT/ML VIAL. SQ SCH ×3 (05:44→21:08)
[2020-12-08 07:28] VITALS: BP 148/67
[2020-12-08] MEDS: THIAMINE 100 MG TABLET. PO SCH (08:58)
[2020-12-08] MEDS: DOXYCYCLINE HYCLATE 100 MG in IV DEXTROSE 5% 100ML 100 ML IV SCH ×2 (08:58→21:07)
[2020-12-08] MEDS: ASCORBIC ACID 500 MG TABLET PO SCH (08:58)
[2020-12-08] MEDS: ZINC SULFATE 220 MG CAPSULE. PO SCH (08:58)
[2020-12-08] MEDS: REMDESIVIR 100mg in NORMAL SALINE 250ML X 4 DAYS IV SCH (10:35)
[2020-12-08 10:42] VITALS: BP 142/66
[2020-12-08 11:18] LABS: BASO % 0 % (0-3); EOS % 1 % (0-3); HEMATOCRIT 39.5 % (39.0-53.0); HEMOGLOBIN 13.3 g/dL (13.0-17.5); LYMPH # 0.7 x10^3/uL (1.0-4.8); LYMPH % 8 % (24-48); MEAN CORPUSCULAR HEMOGLOBIN 29 pg (25-35); MEAN CORPUSCULAR HGB CONC 34 g/dL (31-37); MEAN CORPUSCULAR VOLUME 85 fL (79-100); MONO % 11 % (0-9); NEUT # 6.7 x10^3/uL (1.8-7.7); NEUT % 80 % (31-73); PLATELET COUNT 300 x10^3/uL (140-400); RED BLOOD COUNT 4.67 x10^6/uL (4.30-5.70); RED CELL DISTRIBUTION WIDTH 13.9 % (11.5-14.5); WHITE BLOOD COUNT 8.4 x10^3/uL (4.0-11.0)
--- NOTE | 2020-12-08 11:25 | PDOC ---
[facility] PROGRESS NOTE Date of Service DOS: DATE: 12/08/20 TIME: 11:23 Chief Complaint Chief Complaint SOB History of Present Illness History of Present Illness Mr Oliver is an 85yo male with PMHx HTN who presents to ED via EMS due to progressive rhinorrhea and some shortness of breath as well as loss of sense of taste. Patient speaks primarily Surinamese with some Divehi and his son was initially bedside and noted his stepmother tested positive for Covid 1 week ago and the patient is not vaccinated against Covid. He notes he has been feeling weak in his been unable to get to the restroom a few times and had accidents where he urinated on himself. No diarrhea or abdominal pain. Temperature 100.3 F in ED. O2 saturations 87% improved to 92% with 2 L nasal cannula oxygen. Labs with WBC 11.8, Hb 13.6, platelets 201, NA 142, K4.4, BUN 25, CR 1.5, glucose 148, calcium 8.4, bilirubin 0.7, AST 68, ALT 62, alkaline phosphatase 48, albumin 2.8, NT proBNP 2885, initial troponin 0.046 EKG normal sinus rhythm rate of 87 bpm, leftward axis otherwise normal intervals no T wave inversions or ST segment elevations. Chest radiograph with multifocal pulmonary opacities bilaterally Admitted for further care of hypoxia 12/06/20 Patient seen and examined at bedside. He did not appear in any distress. Notable language barrier. Continue COVID treatment. 12/07/20 Patient seen and examined at bedside. Febrile yesterday. Continue all current Covid treatment. Wean oxygen as tolerated, currently on 10 L nasal cannula. No changes otherwise, plan of care discussed with bedside RN. 12/08 Patient evaluated at bedside. No major changes overnight. Continuing current plan. Wean O2 as tolerated. Continue Covid treatment. Vitals/I&O Vitals/I&O: Vital Signs Date Time Temp Pulse Resp B/P (MAP) Pulse Ox O2 Delivery O2 Flow Rate FiO2 12/08/20 10:42 98.0 70 20 142/66 (91) 97 High Flow Nasal Cannula 10.0 98.0 I & O 12/07/20 12/07/20 12/08/20 15:00 23:00 07:00 Intake Total 1580 ml 100 ml Output Total 200 ml 250 ml Balance 1380 ml -250 ml 100 ml Physical Exam General: Alert, Cooperative, mild distress Heart: Regular rate, Normal S1, Normal S2 Lungs: Other (coarse) Abdomen: Normal bowel sounds, Soft, No tenderness, No masses Extremities: No clubbing, No cyanosis, No edema, Normal pulses, No tenderness/swelling Skin: No rashes, No breakdown, No significant lesion Assessment and Plan Assessmemt and Plan Problems Medical Problems: (1) Hypoxemia requiring supplemental oxygen Status: Acute (2) Person under investigation for COVID-19 Status: Acute (3) Renal insufficiency Status: Acute A/P: Acute respiratory failure with hypoxia - pneumonia vs pulmonary edema from mild acute chf Abnormal chest radiograph - symptomatically pneumonia with fever, cough, hypoxia Sepsis - with fever, leukocytosis, given empiric antibiotics.will give IVF for LIVIA, sepsis, limit to 30mg/kg total Elevated troponin - likely demand ischemia from hypoxia, will monitor LIVIA - no renal disease history, likely vasomotor nephropathy.l Transaminitis - possibly hypoxia mediated vs possible COVID 19 Moderate aortic stenosis - on recent echocardiogram. Will try not to lower BP excessively, will give IVF for LIVIA, sepsis, limit to 30mg/kg total Cough - will order cough suppressant, likely viral pneumonia from COVID 19, will treat supportively and cover for secondary bacterial pneumonia as well. Confusion/Acute encephalopathy - likely metabolic from hypoxia, sepsis, will monitor mental status, light during the day, prn zyprexa for agitation or anxiety FEN - Regular diet PPX - heparin FULL CODE Dispo - inpatient for hypoxia Comment Review of Relevant I have reviewed the following items khushbu (where applicable) has been applied. Medications: Current Medications Medications (Trade) Dose Ordered Sig/Harshal Route PRN Reason Start Time Stop Time Status Last Admin Dose Admin Remdesivir 100 mg/ Sodium Chloride 230 ml @ 460 mls/hr Q24H IV 12/08/20 11:00 12/11/20 11:29 12/08/20 10:35 Justifications for Admission Other Justification WILLIAM HALE MD Dec 08, 2020 11:25
[2020-12-08 11:35] LABS: ALBUMIN/GLOBULIN RATIO 0.5 (1.0-1.7); CALCIUM 8.5 mg/dL (8.5-10.1); GFR 71.4; POTASSIUM 3.4 mmol/L (3.5-5.1); TOTAL BILIRUBIN 0.4 mg/dL (0.2-1.0)
--- NOTE | 2020-12-08 13:16 | NUR ---
SW following. Discussed with RN, pt from home with ( also has COVID-19), 10L, cardiac diet. COVID-19 positive. Pt not medically stable to discharge. SW will continue to follow.
[2020-12-08 15:00] VITALS: BP 147/70
[2020-12-08 19:00] VITALS: BP 155/67
[2020-12-08] MEDS: PSYLLIUM HUSK (SUGAR FREE) 1 PKT PACKET PO SCH (21:02)
[2020-12-08] MEDS: cefTRIAXone IV Push 1 GM VIAL. IVP SCH (21:02)
[2020-12-08] MEDS: LACTOBACILLUS RHAMNOSUS GG 1 CAPSULE. PO SCH (21:06)
[2020-12-08] MEDS: ACETAMINOPHEN 325 MG TABLET. PO PRN (21:13)
[2020-12-08 23:00] VITALS: BP 145/65
[2020-12-09 03:00] VITALS: BP 150/62
[2020-12-09] MEDS: HEPARIN for SUB-Q USE 5,000 UNIT/ML VIAL. SQ SCH ×3 (05:18→22:34)
[2020-12-09 07:30] VITALS: BP 140/60
[2020-12-09] MEDS: DOXYCYCLINE HYCLATE 100 MG in IV DEXTROSE 5% 100ML 100 ML IV SCH ×2 (09:53→22:32)
[2020-12-09] MEDS: THIAMINE 100 MG TABLET. PO SCH (09:54)
[2020-12-09] MEDS: LACTOBACILLUS RHAMNOSUS GG 1 CAPSULE. PO SCH ×2 (09:54→22:32)
[2020-12-09] MEDS: ASCORBIC ACID 500 MG TABLET PO SCH (09:54)
[2020-12-09] MEDS: ZINC SULFATE 220 MG CAPSULE. PO SCH (09:54)
[2020-12-09 11:05] VITALS: BP 132/63
[2020-12-09] MEDS: REMDESIVIR 100mg in NORMAL SALINE 250ML X 4 DAYS IV SCH (12:16)
--- NOTE | 2020-12-09 14:34 | PDOC ---
[facility] PROGRESS NOTE Date of Service DOS: DATE: 12/09/20 TIME: 14:33 Chief Complaint Chief Complaint SOB History of Present Illness History of Present Illness Mr Oliver is an 85yo male with PMHx HTN who presents to ED via EMS due to progressive rhinorrhea and some shortness of breath as well as loss of sense of taste. Patient speaks primarily Haitian with some Azeri and his son was initially bedside and noted his stepmother tested positive for Covid 1 week ago and the patient is not vaccinated against Covid. He notes he has been feeling weak in his been unable to get to the restroom a few times and had accidents where he urinated on himself. No diarrhea or abdominal pain. Temperature 100.3 F in ED. O2 saturations 87% improved to 92% with 2 L nasal cannula oxygen. Labs with WBC 11.8, Hb 13.6, platelets 201, NA 142, K4.4, BUN 25, CR 1.5, glucose 148, calcium 8.4, bilirubin 0.7, AST 68, ALT 62, alkaline phosphatase 48, albumin 2.8, NT proBNP 2885, initial troponin 0.046 EKG normal sinus rhythm rate of 87 bpm, leftward axis otherwise normal intervals no T wave inversions or ST segment elevations. Chest radiograph with multifocal pulmonary opacities bilaterally Admitted for further care of hypoxia 12/06/20 Patient seen and examined at bedside. He did not appear in any distress. Notable language barrier. Continue COVID treatment. 12/07/20 Patient seen and examined at bedside. Febrile yesterday. Continue all current Covid treatment. Wean oxygen as tolerated, currently on 10 L nasal cannula. No changes otherwise, plan of care discussed with bedside RN. 12/08 Patient evaluated at bedside. No major changes overnight. Continuing current plan. Wean O2 as tolerated. Continue Covid treatment. 12/09 No major events or changes. Patient evaluated at bedside. Still on 8 L high flow. Continue Covid treatment, still on remdesivir. Vitals/I&O Vitals/I&O: Vital Signs Date Time Temp Pulse Resp B/P (MAP) Pulse Ox O2 Delivery O2 Flow Rate FiO2 12/09/20 11:05 98.2 79 24 132/63 (86) 91 High Flow Nasal Cannula 8.0 98.2 I & O 12/08/20 12/08/20 12/09/20 15:00 23:00 07:00 Intake Total 120 ml 330 ml 100 ml Output Total 400 ml 400 ml Balance -280 ml 330 ml -300 ml Physical Exam General: Alert, Cooperative, mild distress Heart: Regular rate, Normal S1, Normal S2 Lungs: Other (coarse) Abdomen: Normal bowel sounds, Soft, No tenderness, No masses Extremities: No clubbing, No cyanosis, No edema, Normal pulses, No tenderness/swelling Skin: No rashes, No breakdown, No significant lesion Assessment and Plan Assessmemt and Plan Problems Medical Problems: (1) Hypoxemia requiring supplemental oxygen Status: Acute (2) Person under investigation for COVID-19 Status: Acute (3) Renal insufficiency Status: Acute A/P: Acute respiratory failure with hypoxia - vovid 19pneumonia vs pulmonary edema from mild acute chf Abnormal chest radiograph - symptomatically pneumonia with fever, cough, hypoxia Sepsis - with fever, leukocytosis, given empiric antibiotics.will give IVF for LIVIA, sepsis, limit to 30mg/kg total Elevated troponin - likely demand ischemia from hypoxia, will monitor LIVIA - no renal disease history, likely vasomotor nephropathy.l Transaminitis - possibly hypoxia mediated vs possible COVID 19 Moderate aortic stenosis - on recent echocardiogram. Will try not to lower BP excessively, will give IVF for LIVIA, sepsis, limit to 30mg/kg total Cough - will order cough suppressant, likely viral pneumonia from COVID 19, will treat supportively and cover for secondary bacterial pneumonia as well. Confusion/Acute encephalopathy - likely metabolic from hypoxia, sepsis, will monitor mental status, light during the day, prn zyprexa for agitation or anxiety FEN - Regular diet PPX - heparin FULL CODE Comment Review of Relevant I have reviewed the following items khushbu (where applicable) has been applied. Medications: Current Medications Medications (Trade) Dose Ordered Sig/Harshal Route PRN Reason Start Time Stop Time Status Last Admin Dose Admin Lactobacillus Rhamnosus (Culturelle) 1 cap BID PO 12/08/20 21:00 12/09/20 09:54 Justifications for Admission Other Justification WILLIAM HALE MD Dec 09, 2020 14:34
[2020-12-09 14:45] VITALS: BP 134/66
[2020-12-09 19:00] VITALS: BP 149/64
[2020-12-09] MEDS: PSYLLIUM HUSK (SUGAR FREE) 1 PKT PACKET PO SCH (22:33)
[2020-12-09] MEDS: cefTRIAXone IV Push 1 GM VIAL. IVP SCH (22:33)
[2020-12-09 23:00] VITALS: BP 136/63
[2020-12-10] MEDS: ACETAMINOPHEN 325 MG TABLET. PO PRN (01:49)
[2020-12-10 03:00] VITALS: BP 145/63
[2020-12-10] MEDS: HEPARIN for SUB-Q USE 5,000 UNIT/ML VIAL. SQ SCH ×3 (06:20→21:19)
[2020-12-10 07:25] VITALS: BP 149/63
[2020-12-10] MEDS: ASCORBIC ACID 500 MG TABLET PO SCH (08:16)
[2020-12-10] MEDS: THIAMINE 100 MG TABLET. PO SCH (08:16)
[2020-12-10] MEDS: ZINC SULFATE 220 MG CAPSULE. PO SCH (08:16)
[2020-12-10] MEDS: LACTOBACILLUS RHAMNOSUS GG 1 CAPSULE. PO SCH ×2 (08:16→21:18)
[2020-12-10] MEDS: DOXYCYCLINE HYCLATE 100 MG in IV DEXTROSE 5% 100ML 100 ML IV SCH ×2 (08:17→21:18)
[2020-12-10 11:12] VITALS: BP 130/55
[2020-12-10] MEDS: REMDESIVIR 100mg in NORMAL SALINE 250ML X 4 DAYS IV SCH (11:47)
--- NOTE | 2020-12-10 13:41 | NUR ---
SW following. Discussed with RN, pt from home with , 8L (does not use oxygen at home), independent. COVID-19 positive. RN advised no SW needs at this time. Pt will need a 6 minute walk prior to discharge. SW will continue to follow.
--- NOTE | 2020-12-10 13:43 | PDOC ---
[facility] PROGRESS NOTE Date of Service DOS: DATE: 12/10/20 TIME: 13:42 Chief Complaint Chief Complaint SOB History of Present Illness History of Present Illness Mr Oliver is an 85yo male with PMHx HTN who presents to ED via EMS due to progressive rhinorrhea and some shortness of breath as well as loss of sense of taste. Patient speaks primarily [place] Arabian with some Danish and his son was initially bedside and noted his stepmother tested positive for Covid 1 week ago and the patient is not vaccinated against Covid. He notes he has been feeling weak in his been unable to get to the restroom a few times and had accidents where he urinated on himself. No diarrhea or abdominal pain. Temperature 100.3 F in ED. O2 saturations 87% improved to 92% with 2 L nasal cannula oxygen. Labs with WBC 11.8, Hb 13.6, platelets 201, NA 142, K4.4, BUN 25, CR 1.5, glucose 148, calcium 8.4, bilirubin 0.7, AST 68, ALT 62, alkaline phosphatase 48, albumin 2.8, NT proBNP 2885, initial troponin 0.046 EKG normal sinus rhythm rate of 87 bpm, leftward axis otherwise normal intervals no T wave inversions or ST segment elevations. Chest radiograph with multifocal pulmonary opacities bilaterally Admitted for further care of hypoxia 12/06/20 Patient seen and examined at bedside. He did not appear in any distress. Notable language barrier. Continue COVID treatment. 12/07/20 Patient seen and examined at bedside. Febrile yesterday. Continue all current Covid treatment. Wean oxygen as tolerated, currently on 10 L nasal cannula. No changes otherwise, plan of care discussed with bedside RN. 12/08 Patient evaluated at bedside. No major changes overnight. Continuing current plan. Wean O2 as tolerated. Continue Covid treatment. 12/09 No major events or changes. Patient evaluated at bedside. Still on 8 L high flow. Continue Covid treatment, still on remdesivir. 12/10 No major events or changes. Still on 8 L high flow nasal cannula. Evaluated at bedside. Continuing current plan and await respiratory recovery. Vitals/I&O Vitals/I&O: Vital Signs Date Time Temp Pulse Resp B/P (MAP) Pulse Ox O2 Delivery O2 Flow Rate FiO2 12/10/20 11:12 98.2 75 20 130/55 (80) 96 High Flow Nasal Cannula 8.0 98.2 I & O 12/09/20 12/09/20 12/10/20 15:00 23:00 07:00 Intake Total 120 ml 0 ml 0 ml Output Total 700 ml Balance -580 ml 0 ml 0 ml Physical Exam General: Alert, Cooperative, mild distress Heart: Regular rate, Normal S1, Normal S2 Lungs: Other (coarse) Abdomen: Normal bowel sounds, Soft, No tenderness, No masses Extremities: No clubbing, No cyanosis, No edema, Normal pulses, No tenderness/swelling Skin: No rashes, No breakdown, No significant lesion Assessment and Plan Assessmemt and Plan Problems Medical Problems: (1) Hypoxemia requiring supplemental oxygen Status: Acute (2) Person under investigation for COVID-19 Status: Acute (3) Renal insufficiency Status: Acute A/P: Acute respiratory failure with hypoxia - vovid 19pneumonia vs pulmonary edema from mild acute chf Abnormal chest radiograph - symptomatically pneumonia with fever, cough, hypoxia Sepsis - with fever, leukocytosis, given empiric antibiotics.will give IVF for LIVIA, sepsis, limit to 30mg/kg total Elevated troponin - likely demand ischemia from hypoxia, will monitor LIVIA - no renal disease history, likely vasomotor nephropathy.l Transaminitis - possibly hypoxia mediated vs possible COVID 19 Moderate aortic stenosis - on recent echocardiogram. Will try not to lower BP excessively, will give IVF for LIVIA, sepsis, limit to 30mg/kg total Cough - will order cough suppressant, likely viral pneumonia from COVID 19, will treat supportively and cover for secondary bacterial pneumonia as well. Confusion/Acute encephalopathy - likely metabolic from hypoxia, sepsis, will monitor mental status, light during the day, prn zyprexa for agitation or anxiety FEN - Regular diet PPX - heparin Comment Review of Relevant I have reviewed the following items khushbu (where applicable) has been applied. Justifications for Admission Other Justification WILLIAM HALE MD Dec 10, 2020 13:43
[2020-12-10 15:25] VITALS: BP 135/62
[2020-12-10] MEDS: PSYLLIUM HUSK (SUGAR FREE) 1 PKT PACKET PO SCH (21:17)
[2020-12-10 23:00] VITALS: BP 138/60
[2020-12-10] MEDS: cefTRIAXone IV Push 1 GM VIAL. IVP SCH (23:58)
[2020-12-11 03:00] VITALS: BP 143/61
[2020-12-11] MEDS: HEPARIN for SUB-Q USE 5,000 UNIT/ML VIAL. SQ SCH ×3 (05:59→20:56)
[2020-12-11 06:57] VITALS: BP 142/69
[2020-12-11] MEDS: LACTOBACILLUS RHAMNOSUS GG 1 CAPSULE. PO SCH ×2 (09:47→20:57)
[2020-12-11] MEDS: ZINC SULFATE 220 MG CAPSULE. PO SCH (09:47)
[2020-12-11] MEDS: ASCORBIC ACID 500 MG TABLET PO SCH (09:47)
[2020-12-11] MEDS: ACETAMINOPHEN 325 MG TABLET. PO PRN (09:47)
[2020-12-11] MEDS: THIAMINE 100 MG TABLET. PO SCH (09:48)
[2020-12-11] MEDS: DOXYCYCLINE HYCLATE 100 MG in IV DEXTROSE 5% 100ML 100 ML IV SCH ×2 (09:50→20:57)
[2020-12-11 11:00] VITALS: BP 130/55
[2020-12-11] MEDS: REMDESIVIR 100mg in NORMAL SALINE 250ML X 4 DAYS IV SCH (12:17)
[2020-12-11 15:00] VITALS: BP 155/62
--- NOTE | 2020-12-11 17:30 | PDOC ---
GENERAL General: Patient examined chart reviewed today's hospital day 7 for this patient admitted with acute hypoxic respiratory failure secondary to Covid pneumonia. He mostly speaks Sudanese but is able to communicate in Fijian tells me he is feeling a little stronger. Discussed with nursing and she tells me his oxygen needs are decreasing. He has completed remdesivir. Pulmonary is not involved as he has responded well to supportive care. We can continue to avoid pulmonary consultation as long as he continues to clinically improve. All other systems reviewed and negative. Time spent today is 30 minutes with greater than 50% in counseling and coordination of care most of which in discussion with patient. The patient was seen in full isolation gear including N95 respirator covered with a surgical mask, goggles covering eyewear, and contact isolation robe and hair cover. Problems: (1) Pneumonia due to COVID-19 virus (2) Hypoxemia requiring supplemental oxygen VITAL SIGNS Vital Signs/I&O: Vital Signs Date Time Temp Pulse Resp B/P (MAP) Pulse Ox O2 Delivery O2 Flow Rate FiO2 12/11/20 15:00 97.7 76 18 155/62 (93) 95 Nasal Cannula 5.0 97.7 I & O 12/10/20 12/10/20 12/11/20 15:00 23:00 07:00 Intake Total 120 ml 120 ml 310 ml Output Total 300 ml 400 ml Balance -180 ml -280 ml 310 ml In general the patient is pleasant mostly Sudanese speaking but able to commu nicate some in Fijian is comfortable this evening. HEENT exam is unremarkable Chest bilateral equal air entry though diminished throughout no crackles or wheezes are noted Heart S1-S2 normal regular rate and rhythm 2 x 6 systolic murmur noted loudest at the left sternal border Abdomen soft nontender nondistended no masses organomegaly noted Extremity exam is unremarkable for acute abnormality ALLERGIES Allergies: Allergies Coded Allergies Type Severity Reaction Last Updated Verified No Known Drug Allergies 12/05/20 No MEDS Medications: Current Medications Medications (Trade) Dose Ordered Sig/Harshal Start Time Stop Time Status Last Admin Dose Admin Acetaminophen (Tylenol) 650 mg PRN Q6HRS PRN 12/05/20 19:45 12/11/20 09:47 Amlodipine Besylate (Norvasc) 5 mg DAILY 12/05/20 20:00 12/11/20 09:47 Ascorbic Acid (Vitamin C) 500 mg DAILY 12/06/20 09:00 12/11/20 09:47 Ceftriaxone Sodium (Rocephin) 1 gm Q24H 12/05/20 23:15 12/12/20 23:14 12/10/20 23:58 Doxycycline Hyclate 100 mg/ Dextrose 100 ml @ 50 mls/hr 1X ONCE 12/05/20 23:30 12/06/20 01:29 DC 12/06/20 00:58 Guaifenesin (Robitussin Dm) 10 ml PRN Q6HRS PRN 12/05/20 19:45 Guaifenesin/ Codeine Phosphate (Robitussin Ac) 5 ml PRN Q6HRS PRN 12/07/20 09:15 Heparin Sodium (Porcine) (Heparin Sodium) 5,000 unit Q8HRS 12/05/20 22:00 12/11/20 14:32 Hydralazine HCl (Apresoline Inj) 10 mg PRN Q4HRS PRN 12/05/20 19:45 Lactobacillus Rhamnosus (Culturelle) 1 cap BID 12/08/20 21:00 12/11/20 09:47 Olanzapine (ZyPREXA ZYDIS) 5 mg PRN BID PRN 12/05/20 19:45 12/08/20 21:13 Ondansetron HCl (Zofran) 4 mg PRN Q4HRS PRN 12/05/20 19:45 Psyllium Hydrophilic Mucilloid (Metamucil Fiber Packet) 1 pkt QHS 12/05/20 21:00 12/10/20 21:17 Remdesivir 100 mg/ Sodium Chloride 230 ml @ 460 mls/hr Q24H 12/08/20 11:00 12/11/20 11:29 DC 12/11/20 12:17 Remdesivir 200 mg/ Sodium Chloride 210 ml @ 210 mls/hr 1X ONCE 12/07/20 11:00 12/07/20 11:59 DC 12/07/20 11:55 Sodium Chloride 1,000 ml @ 75 mls/hr [id number] 12/05/20 23:15 12/07/20 01:54 DC 12/06/20 18:28 Thiamine Mononitrate (Vitamin B-1) 100 mg DAILY 12/06/20 09:00 12/11/20 09:48 Tramadol HCl (Ultram) 50 mg PRN Q6HRS PRN 12/05/20 19:45 Zinc Sulfate (Orazinc) 220 mg DAILY 12/06/20 09:00 12/11/20 09:47 ASSESSMENT & PLAN A&P Plan as noted above This note was created using [employer] and may have omissions and/or errors due to the nature of real-time voice used equipment sales representative. Justifications for Admission Other Justification MESHA POTTER MD Dec 11, 2020 17:30
[2020-12-11 19:00] VITALS: BP 141/60
[2020-12-11] MEDS: PSYLLIUM HUSK (SUGAR FREE) 1 PKT PACKET PO SCH (20:57)
[2020-12-11 23:00] VITALS: BP 139/56
[2020-12-11] MEDS: cefTRIAXone IV Push 1 GM VIAL. IVP SCH (23:30)
[2020-12-12 03:00] VITALS: BP 139/64
[2020-12-12] MEDS: HEPARIN for SUB-Q USE 5,000 UNIT/ML VIAL. SQ SCH ×3 (06:21→21:03)
[2020-12-12 07:00] VITALS: BP 142/62
[2020-12-12 08:21] LABS: BASO # 0.1 x10^3/uL (0.0-0.2); BASO % 1 % (0-3); EOS # 0.2 x10^3/uL (0.0-0.7); EOS % 2 % (0-3); HEMATOCRIT 38.9 % (39.0-53.0); HEMOGLOBIN 13.3 g/dL (13.0-17.5); LYMPH # 1.4 x10^3/uL (1.0-4.8); LYMPH % 15 % (24-48); MEAN CORPUSCULAR HEMOGLOBIN 29 pg (25-35); MEAN CORPUSCULAR HGB CONC 34 g/dL (31-37); MEAN CORPUSCULAR VOLUME 84 fL (79-100); MONO % 11 % (0-9); NEUT # 6.4 x10^3/uL (1.8-7.7); NEUT % 71 % (31-73); PLATELET COUNT 409 x10^3/uL (140-400); RED BLOOD COUNT 4.65 x10^6/uL (4.30-5.70); RED CELL DISTRIBUTION WIDTH 13.7 % (11.5-14.5); WHITE BLOOD COUNT 9.1 x10^3/uL (4.0-11.0)
[2020-12-12 08:22] LABS: ALBUMIN 2.1 g/dL (3.4-5.0); ALBUMIN/GLOBULIN RATIO 0.6 (1.0-1.7); CALCIUM 8.2 mg/dL (8.5-10.1); CREATININE 0.9 mg/dL (0.7-1.3); GFR 80.6; POTASSIUM 3.6 mmol/L (3.5-5.1); TOTAL BILIRUBIN 0.4 mg/dL (0.2-1.0); TOTAL PROTEIN 5.7 g/dL (6.4-8.2)
[2020-12-12] MEDS: ZINC SULFATE 220 MG CAPSULE. PO SCH (08:22)
[2020-12-12] MEDS: THIAMINE 100 MG TABLET. PO SCH (08:23)
[2020-12-12] MEDS: ASCORBIC ACID 500 MG TABLET PO SCH (08:23)
[2020-12-12] MEDS: LACTOBACILLUS RHAMNOSUS GG 1 CAPSULE. PO SCH ×2 (08:23→21:04)
[2020-12-12 11:00] VITALS: BP 142/63
[2020-12-12 15:00] VITALS: BP 128/52
--- NOTE | 2020-12-12 15:46 | PDOC ---
GENERAL General: Patient examined chart reviewed no overnight events noted. Patient is in good spirits this afternoon and has no new complaints. Oxygen levels are stable and slightly decreased from the last 24 hours. Continue current management. Problems: (1) Hypoxemia requiring supplemental oxygen (2) Pneumonia due to COVID-19 virus VITAL SIGNS Vital Signs/I&O: Vital Signs Date Time Temp Pulse Resp B/P (MAP) Pulse Ox O2 Delivery O2 Flow Rate FiO2 12/12/20 15:00 65 19 128/52 (77) 96 12/12/20 11:00 98.6 High Flow Nasal Cannula 8.0 98.6 I & O 12/11/20 12/11/20 12/12/20 15:00 23:00 07:00 Intake Total 100 ml 180 ml Output Total 950 ml 100 ml Balance -850 ml 80 ml Patient is resting comfortably this afternoon alert and oriented x3 no acute distress HEENT exam is unremarkable Chest bilateral equal air entry though diminished throughout Heart S1-S2 normal regular rate and rhythm 3 x 6 systolic murmur noted loudest at the second right intercostal space Abdomen soft nontender nondistended no masses organomegaly noted Extremity exam is unremarkable for acute abnormality ALLERGIES Allergies: Allergies Coded Allergies Type Severity Reaction Last Updated Verified No Known Drug Allergies 12/05/20 No MEDS Medications: Current Medications Medications (Trade) Dose Ordered Sig/Harshal Start Time Stop Time Status Last Admin Dose Admin Acetaminophen (Tylenol) 650 mg PRN Q6HRS PRN 12/05/20 19:45 12/11/20 09:47 Amlodipine Besylate (Norvasc) 5 mg DAILY 12/05/20 20:00 12/12/20 08:23 Ascorbic Acid (Vitamin C) 500 mg DAILY 12/06/20 09:00 12/12/20 08:23 Ceftriaxone Sodium (Rocephin) 1 gm Q24H 12/05/20 23:15 12/12/20 23:14 12/11/20 23:30 Doxycycline Hyclate 100 mg/ Dextrose 100 ml @ 50 mls/hr 1X ONCE 12/05/20 23:30 12/06/20 01:29 DC 12/06/20 00:58 Guaifenesin (Robitussin Dm) 10 ml PRN Q6HRS PRN 12/05/20 19:45 Guaifenesin/ Codeine Phosphate (Robitussin Ac) 5 ml PRN Q6HRS PRN 12/07/20 09:15 Heparin Sodium (Porcine) (Heparin Sodium) 5,000 unit Q8HRS 12/05/20 22:00 12/12/20 13:29 Hydralazine HCl (Apresoline Inj) 10 mg PRN Q4HRS PRN 12/05/20 19:45 Lactobacillus Rhamnosus (Culturelle) 1 cap BID 12/08/20 21:00 12/12/20 08:23 Olanzapine (ZyPREXA ZYDIS) 5 mg PRN BID PRN 12/05/20 19:45 12/08/20 21:13 Ondansetron HCl (Zofran) 4 mg PRN Q4HRS PRN 12/05/20 19:45 Psyllium Hydrophilic Mucilloid (Metamucil Fiber Packet) 1 pkt QHS 12/05/20 21:00 12/11/20 20:57 Remdesivir 100 mg/ Sodium Chloride 230 ml @ 460 mls/hr Q24H 12/08/20 11:00 12/11/20 11:29 DC 12/11/20 12:17 Remdesivir 200 mg/ Sodium Chloride 210 ml @ 210 mls/hr 1X ONCE 12/07/20 11:00 12/07/20 11:59 DC 12/07/20 11:55 Sodium Chloride 1,000 ml @ 75 mls/hr [id number] 12/05/20 23:15 12/07/20 01:54 DC 12/06/20 18:28 Thiamine Mononitrate (Vitamin B-1) 100 mg DAILY 12/06/20 09:00 12/12/20 08:23 Tramadol HCl (Ultram) 50 mg PRN Q6HRS PRN 12/05/20 19:45 Zinc Sulfate (Orazinc) 220 mg DAILY 12/06/20 09:00 12/12/20 08:22 LAB Lab: Laboratory Tests Test 12/12/20 07:35 White Blood Count 9.1 x10^3/uL (4.0-11.0) Red Blood Count 4.65 x10^6/uL (4.30-5.70) Hemoglobin 13.3 g/dL (13.0-17.5) Hematocrit 38.9 % (39.0-53.0) L Mean Corpuscular Volume 84 fL (79-100) Mean Corpuscular Hemoglobin 29 pg (25-35) Mean Corpuscular Hemoglobin Concent 34 g/dL (31-37) Red Cell Distribution Width 13.7 % (11.5-14.5) Platelet Count 409 x10^3/uL (140-400) H Neutrophils (%) (Auto) 71 % (31-73) Lymphocytes (%) (Auto) 15 % (24-48) L Monocytes (%) (Auto) 11 % (0-9) H Eosinophils (%) (Auto) 2 % (0-3) Basophils (%) (Auto) 1 % (0-3) Neutrophils # (Auto) 6.4 x10^3/uL (1.8-7.7) Lymphocytes # (Auto) 1.4 x10^3/uL (1.0-4.8) Monocytes # (Auto) 1.0 x10^3/uL (0.0-1.1) Eosinophils # (Auto) 0.2 x10^3/uL (0.0-0.7) Basophils # (Auto) 0.1 x10^3/uL (0.0-0.2) Sodium Level 143 mmol/L (136-145) Potassium Level 3.6 mmol/L (3.5-5.1) Chloride Level 107 mmol/L (98-107) Carbon Dioxide Level 30 mmol/L (21-32) Anion Gap 6 (6-14) Blood Urea Nitrogen 12 mg/dL (8-26) Creatinine 0.9 mg/dL (0.7-1.3) Estimated GFR (Cockcroft-Gault) 80.6 BUN/Creatinine Ratio 13 (6-20) Glucose Level 94 mg/dL (70-99) Calcium Level 8.2 mg/dL (8.5-10.1) L Total Bilirubin 0.4 mg/dL (0.2-1.0) Aspartate Amino Transferase (AST) 68 U/L (15-37) H Alanine Aminotransferase (ALT) 54 U/L (16-63) Alkaline Phosphatase 50 U/L (46-116) Total Protein 5.7 g/dL (6.4-8.2) L Albumin 2.1 g/dL (3.4-5.0) L Albumin/Globulin Ratio 0.6 (1.0-1.7) L Laboratory Tests 12/12/20 07:35 Laboratory Tests 12/12/20 07:35 ASSESSMENT & PLAN A&P Plan as noted above This note was created using [employer] and may have omissions and/or errors due to the nature of real-time voice relay worker. Justifications for Admission Other Justification MESHA POTTER MD Dec 12, 2020 15:46
[2020-12-12 19:10] VITALS: BP 123/51
[2020-12-12] MEDS: PSYLLIUM HUSK (SUGAR FREE) 1 PKT PACKET PO SCH (21:04)
[2020-12-12 23:20] VITALS: BP 134/64
[2020-12-13 02:55] VITALS: BP 145/55
[2020-12-13] MEDS: HEPARIN for SUB-Q USE 5,000 UNIT/ML VIAL. SQ SCH (05:35)
[2020-12-13 07:00] VITALS: BP 140/65
[2020-12-13] MEDS: ZINC SULFATE 220 MG CAPSULE. PO SCH (09:57)
[2020-12-13] MEDS: LACTOBACILLUS RHAMNOSUS GG 1 CAPSULE. PO SCH (09:57)
[2020-12-13] MEDS: ASCORBIC ACID 500 MG TABLET PO SCH (10:06)
[2020-12-13] MEDS: THIAMINE 100 MG TABLET. PO SCH (10:06)
[2020-12-13 11:25] VITALS: BP 142/64
--- NOTE | 2020-12-13 12:22 | NUR ---
SW following. Discussed with RN, pt from home with , [place] (does not use oxygen at home), cardiac diet. 6 minute walk ordered. COVID-19 positive. CONNIE will continue to follow. Addendum: 12/13/20 at 1558 by KIMMY ROSALES Pt completed 6 minute walk, does not require home oxygen per RT. Discharge order for pt to return home.
--- NOTE | 2020-12-13 14:04 | PDOC ---
[facility] PROGRESS NOTE Date of Service DOS: DATE: 12/13/20 TIME: 14:02 Chief Complaint Chief Complaint Respiratory with hypoxia COVID-19 pneumonia History of Present Illness History of Present Illness Mr Oliver is an 85yo male with PMHx HTN who presents to ED via EMS due to progressive rhinorrhea and some shortness of breath as well as loss of sense of taste. Patient speaks primarily Bermudian with some Lithuanian and his son was initially bedside and noted his stepmother tested positive for Covid 1 week ago and the patient is not vaccinated against Covid. He notes he has been feeling weak in his been unable to get to the restroom a few times and had accidents where he urinated on himself. No diarrhea or abdominal pain. Temperature 100.3 F in ED. O2 saturations 87% improved to 92% with 2 L nasal cannula oxygen. Labs with WBC 11.8, Hb 13.6, platelets 201, NA 142, K4.4, BUN 25, CR 1.5, glucose 148, calcium 8.4, bilirubin 0.7, AST 68, ALT 62, alkaline phosphatase 48, albumin 2.8, NT proBNP 2885, initial troponin 0.046 EKG normal sinus rhythm rate of 87 bpm, leftward axis otherwise normal intervals no T wave inversions or ST segment elevations. Chest radiograph with multifocal pulmonary opacities bilaterally Admitted for further care of hypoxia 12/06/20 Patient seen and examined at bedside. He did not appear in any distress. Notable language barrier. Continue COVID treatment. 12/07/20 Patient seen and examined at bedside. Febrile yesterday. Continue all current Covid treatment. Wean oxygen as tolerated, currently on 10 L nasal cannula. No changes otherwise, plan of care discussed with bedside RN. 12/08 Patient evaluated at bedside. No major changes overnight. Continuing current plan. Wean O2 as tolerated. Continue Covid treatment. 12/09 No major events or changes. Patient evaluated at bedside. Still on 8 L high flow. Continue Covid treatment, still on remdesivir. 12/10 No major events or changes. Still on 8 L high flow nasal cannula. Evaluated at bedside. Continuing current plan and await respiratory recovery. 12/13: Reportedly computed 5-day course of remdesivir. Uncertain at this time how much steroid treatment he has received to this point. Will continue treatment with Decadron and supportive care. Will look to obtain 6-minute walk in the next day or so. Discussed with RN. Vitals/I&O Vitals/I&O: Vital Signs Date Time Temp Pulse Resp B/P (MAP) Pulse Ox O2 Delivery O2 Flow Rate FiO2 12/13/20 11:25 98.0 66 20 142/64 (90) 97 Nasal Cannula 5.0 98.0 I & O 12/12/20 12/12/20 12/13/20 15:00 23:00 07:00 Intake Total 120 ml 180 ml Output Total 300 ml 300 ml Balance -180 ml -120 ml Physical Exam General: Alert, Cooperative, mild distress Heart: Regular rate, Normal S1, Normal S2 Lungs: Other (coarse) Abdomen: Normal bowel sounds, Soft, No tenderness, No masses Extremities: No clubbing, No cyanosis, No edema, Normal pulses, No tenderness/swelling Skin: No rashes, No breakdown, No significant lesion Assessment and Plan Assessmemt and Plan Problems Medical Problems: (1) Hypoxemia requiring supplemental oxygen Status: Acute (2) Person under investigation for COVID-19 Status: Acute (3) Renal insufficiency Status: Acute Comment Review of Relevant I have reviewed the following items khushbu (where applicable) has been applied. Justifications for Admission Other Justification ALFREDO TORRES MD Dec 13, 2020 14:04
--- NOTE | 2020-12-13 14:54 | PDOC3 ---
Discharge Summary Visit Information Date of Admission: Dec 05, 2020 Date of Discharge: Dec 13, 2020 Final Diagnosis Problems Medical Problems: (1) Hypoxemia requiring supplemental oxygen Status: Acute (2) Person under investigation for COVID-19 Status: Acute (3) Renal insufficiency Status: Acute Brief Hospital Course Allergies Allergies Coded Allergies Type Severity Reaction Last Updated Verified No Known Drug Allergies 12/05/20 No Vital Signs Vital Signs Date Time Temp Pulse Resp B/P (MAP) Pulse Ox O2 Delivery O2 Flow Rate FiO2 12/13/20 11:25 98.0 66 20 142/64 (90) 97 Nasal Cannula 5.0 98.0 Lab Results Laboratory Tests Test 12/12/20 07:35 White Blood Count 9.1 x10^3/uL (4.0-11.0) Red Blood Count 4.65 x10^6/uL (4.30-5.70) Hemoglobin 13.3 g/dL (13.0-17.5) Hematocrit 38.9 % (39.0-53.0) Mean Corpuscular Volume 84 fL (79-100) Mean Corpuscular Hemoglobin 29 pg (25-35) Mean Corpuscular Hemoglobin Concent 34 g/dL (31-37) Red Cell Distribution Width 13.7 % (11.5-14.5) Platelet Count 409 x10^3/uL (140-400) Neutrophils (%) (Auto) 71 % (31-73) Lymphocytes (%) (Auto) 15 % (24-48) Monocytes (%) (Auto) 11 % (0-9) Eosinophils (%) (Auto) 2 % (0-3) Basophils (%) (Auto) 1 % (0-3) Neutrophils # (Auto) 6.4 x10^3/uL (1.8-7.7) Lymphocytes # (Auto) 1.4 x10^3/uL (1.0-4.8) Monocytes # (Auto) 1.0 x10^3/uL (0.0-1.1) Eosinophils # (Auto) 0.2 x10^3/uL (0.0-0.7) Basophils # (Auto) 0.1 x10^3/uL (0.0-0.2) Sodium Level 143 mmol/L (136-145) Potassium Level 3.6 mmol/L (3.5-5.1) Chloride Level 107 mmol/L (98-107) Carbon Dioxide Level 30 mmol/L (21-32) Anion Gap 6 (6-14) Blood Urea Nitrogen 12 mg/dL (8-26) Creatinine 0.9 mg/dL (0.7-1.3) Estimated GFR (Cockcroft-Gault) 80.6 BUN/Creatinine Ratio 13 (6-20) Glucose Level 94 mg/dL (70-99) Calcium Level 8.2 mg/dL (8.5-10.1) Total Bilirubin 0.4 mg/dL (0.2-1.0) Aspartate Amino Transf (AST/SGOT) 68 U/L (15-37) Alanine Aminotransferase (ALT/SGPT) 54 U/L (16-63) Alkaline Phosphatase 50 U/L (46-116) Total Protein 5.7 g/dL (6.4-8.2) Albumin 2.1 g/dL (3.4-5.0) Albumin/Globulin Ratio 0.6 (1.0-1.7) Brief Hospital Course Mr. Oliver is a 85 old male who presented with acute respiratory failure with hypoxia, COVID-19 pneumonia. He was treated with remdesivir, steroids, and antibiotics with improvement. He had 6-minute walk and did not require any oxygen. Will discharge home with family care with reports to continue self quarantine for duration of at least 10 days. Discharge Information Condition at Discharge: Improved Disposition/Orders: D/C to Home Scheduled Amlodipine Besylate (Amlodipine Besylate) 5 Mg Tablet, 1 TAB PO DAILY for HTN for 90 Days, #90 Ref 3 (Reported) Entered as Reported by: WILLIAM PORTER MD on 12/05/201939 Last Taken: Unknown Dose on 12/04/20 0700 Last Action: Continued on 12/05/201941 by WILLIAM PORTER MD Justicifation of Admission Dx: Justifications for Admission: Justification of Admission Dx: Yes ALFREDO TORRES MD Dec 13, 2020 14:54
[2020-12-13] MEDS ORDERED: DEXAMETHASONE SOD PHOS 4 MG/ML VIAL IVP ONE (15:00)
[2020-12-13 15:30] VITALS: BP 128/68
--- NOTE | 2020-12-13 17:46 | NUR ---
Discharge Note: ELMER BREWSTER T[address] [facility] Discharge instructions and discharge home medications reviewed with Patient and a copy given. All questions have been answered and understanding verbalized. The following instructions and handouts were given: follow up instructions, medication education. Discontinued lines and drains:20 guage left AC, tip intact. patient tolerated well. Patient discharged to home with self care via family.
[2020-12-14] MEDS ORDERED: DEXAMETHASONE SOD PHOS 4 MG/ML VIAL IVP SCH (09:00)
== END 2020-12-13 17:40 | disposition home or self-care (01) | DRG 871 ==
LOC: ER 11:24 → 5 SOUTH 14:50
PROVIDERS: ADMIT Internal Medicine; ATTEND Internal Medicine
PROC: XW033E5 Introduction of Remdesivir Anti-infective into Peripheral Vein, Percutaneous Approach, New Technology Group 5 (ICD-10-PCS; 2020-12-06)
PROC: 5A0935A Assistance with Respiratory Ventilation, Less than 24 Consecutive Hours, High Flow/Velocity Cannula (ICD-10-PCS; principal; 2020-12-08)
PROC: 5A0935A Assistance with Respiratory Ventilation, Less than 24 Consecutive Hours, High Flow/Velocity Cannula (ICD-10-PCS; 2020-12-09)
PROC: 5A0935A Assistance with Respiratory Ventilation, Less than 24 Consecutive Hours, High Flow/Velocity Cannula (ICD-10-PCS; 2020-12-10)
PROC: 5A0935A Assistance with Respiratory Ventilation, Less than 24 Consecutive Hours, High Flow/Velocity Cannula (ICD-10-PCS; 2020-12-11)
PROC: 5A0935A Assistance with Respiratory Ventilation, Less than 24 Consecutive Hours, High Flow/Velocity Cannula (ICD-10-PCS; 2020-12-12)
DX: A41.89 Other specified sepsis (principal); J96.01 Acute respiratory failure with hypoxia; J12.82 Pneumonia due to coronavirus disease 2019; U07.1 COVID-19; I24.8 Other forms of acute ischemic heart disease; N17.9 Acute kidney failure, unspecified; G93.40 Encephalopathy, unspecified; F41.9 Anxiety disorder, unspecified; I11.0 Hypertensive heart disease with heart failure; I35.0 Nonrheumatic aortic (valve) stenosis; I50.9 Heart failure, unspecified; Z82.49 Family history of ischemic heart disease and other diseases of the circulatory system
CPT/HCPCS: 36415; 71045; 80053; 81001; 83880; 84484; 85007; 85025; 86140; 93005; 94618; 96360; J0696; J1644; J3490; J7030; J7050; J7060; U0003; U0005; 99285-25; G0378